=== PATIENT | male | born 1995 | race Caucasian/White ===

== ENCOUNTER 2017-02-23 10:31 | Emergency (ER) | payer OTHER ==
[2017-02-23 13:35] VITALS: BP 139/81
== END 2017-02-23 13:35 | disposition home or self-care (01) ==
LOC: ED 10:31
DX: J45.901 Unspecified asthma with (acute) exacerbation (principal); F17.200 Nicotine dependence, unspecified, uncomplicated
CPT/HCPCS: 99406; J7512; J7613; J7644